=== PATIENT | male | born 1950 | race Caucasian/White ===

== ENCOUNTER 2018-11-29 11:32 | Inpatient (IN) ==
[2018-11-29] MEDS: ceFAZolin 2,000 MG in Water for inj. (sterile) 20 ML IVPB SCH (17:25)
[2018-11-29] MEDS: Insulin LISPRO 300 UNITS/3 ML VIAL SQ SCH (17:26)
[2018-11-29] MEDS: *HR* Metformin 500 MG TABLET PO SCH (17:26)
[2018-11-29] MEDS ORDERED: Insulin DETEMIR 100 UNIT/ML X5UNITS SQ SCH (21:00)
[2018-11-30] MEDS: ceFAZolin 2,000 MG in Water for inj. (sterile) 20 ML IVPB SCH ×3 (01:14→19:36)
[2018-11-30 07:11] LABS: Basophils # 0.1 K/mcL (0.0-0.2); Basophils % 0.8 %; Eosinophils # 0.4 K/mcL (0.0-0.6); Eosinophils % 4.3 %; Hematocrit 28.1 % (37.5-50.1); Hemoglobin 9.4 g/dL (12.9-16.9); Immature Granulocytes % 0.4 % (0-4); Lymphocytes # 1.7 K/mcL (0.6-4.6); Lymphocytes % 20.4 %; Mean Corpuscular HGB Conc 33.5 g/dL (31.6-35.5); Mean Corpuscular Hemoglobin 30.4 pg (28.0-33.3); Mean Corpuscular Volume 90.9 fL (83.0-100.0); Mean Platelet Volume 8.9 fL (9.4-12.4); Monocytes # 0.7 K/mcL (0.0-1.3); Monocytes % 8.4 %; Neutrophils # 5.4 K/mcL (1.6-8.9); Platelet Count 303 K/mcL (140-400); Red Blood Count 3.09 M/mcL (4.19-5.50); Red Cell Distribution Width 14.2 % (11.5-14.5); Segmented Neutrophils % 65.7 %; White Blood Count 8.3 K/mcL (4.3-11.1)
[2018-11-30 07:27] LABS: Calcium 8.2 mg/dL (8.6-10.3); Potassium 3.9 mEq/L (3.5-5.1)
[2018-11-30] MEDS: *HR* Metformin 500 MG TABLET PO SCH ×2 (08:18→19:36)
[2018-11-30] MEDS: Aspirin Enteric Coated 81 MG Tablet PO SCH (08:19)
[2018-11-30] MEDS: Insulin DETEMIR 100 UNIT/ML X5UNITS SQ SCH ×2 (08:19→21:55)
[2018-11-30] MEDS: Insulin LISPRO 300 UNITS/3 ML VIAL SQ SCH ×5 (08:19→21:55)
[2018-11-30] MEDS ORDERED: Dextrose Gel 15 GM/37.5 ML TUBE PO PRN ×2 (19:47)
[2018-11-30] MEDS ORDERED: D5% in Water 1,000 ML IVC PRN (19:47)
[2018-11-30] MEDS ORDERED: *HR* Dextrose 50 % in Water (Syg) 50 ML SYRINGE IVP PRN (19:47)
[2018-11-30] MEDS: Lactobacillus 1 EACH CAP.SPRINK PO SCH (21:55)
[2018-12-01] MEDS: ceFAZolin 2,000 MG in Water for inj. (sterile) 20 ML IVPB SCH ×4 (04:41→20:10)
[2018-12-01 09:23] LABS: Estimated Average Glucose 192 mg/dl
[2018-12-01] MEDS: Aspirin Enteric Coated 81 MG Tablet PO SCH (10:00)
[2018-12-01] MEDS: Lactobacillus 1 EACH CAP.SPRINK PO SCH ×2 (10:00→20:10)
[2018-12-01 10:01] LABS: Folate 7.3 ng/mL (3.0-16.0)
[2018-12-01] MEDS: Insulin DETEMIR 100 UNIT/ML X5UNITS SQ SCH ×2 (10:01→20:10)
[2018-12-01] MEDS: *HR* Metformin 500 MG TABLET PO SCH ×2 (10:01→17:57)
[2018-12-01] MEDS: Insulin LISPRO 300 UNITS/3 ML VIAL SQ SCH ×4 (10:01→20:04)
[2018-12-01] MEDS ORDERED: *HR* Dextrose 50 % in Water (Vial) 50 ML VIAL IVP PRN (17:00)
[2018-12-01] MEDS ORDERED: Cyanocobalamin (B-12) 1,000 MCG/ML VIAL IM ONE (17:20)
[2018-12-02] MEDS: ceFAZolin 2,000 MG in Water for inj. (sterile) 20 ML IVPB SCH ×3 (04:11→21:18)
[2018-12-02] MEDS: Cholecalciferol (D-3) 1,000 UNIT (25MCG) TABLET PO SCH (09:29)
[2018-12-02] MEDS: Insulin LISPRO 300 UNITS/3 ML VIAL SQ SCH ×4 (09:30→21:19)
[2018-12-02] MEDS: Aspirin Enteric Coated 81 MG Tablet PO SCH (09:30)
[2018-12-02] MEDS: Lactobacillus 1 EACH CAP.SPRINK PO SCH ×2 (09:30→21:18)
[2018-12-02] MEDS: Cyanocobalamin (B-12) 1,000 MCG TABLET PO SCH (09:30)
[2018-12-02] MEDS: *HR* Metformin 500 MG TABLET PO SCH ×2 (09:30→17:12)
[2018-12-02] MEDS: Insulin DETEMIR 100 UNIT/ML X5UNITS SQ SCH ×2 (09:34→21:18)
[2018-12-03] MEDS: ceFAZolin 2,000 MG in Water for inj. (sterile) 20 ML IVPB SCH ×3 (05:05→20:29)
[2018-12-03] MEDS: Insulin LISPRO 300 UNITS/3 ML VIAL SQ SCH ×4 (07:33→20:29)
[2018-12-03] MEDS: *HR* Metformin 500 MG TABLET PO SCH ×2 (08:59→16:47)
[2018-12-03] MEDS: Cyanocobalamin (B-12) 1,000 MCG TABLET PO SCH (09:00)
[2018-12-03] MEDS: Insulin DETEMIR 100 UNIT/ML X5UNITS SQ SCH ×2 (09:00→20:30)
[2018-12-03] MEDS: Aspirin Enteric Coated 81 MG Tablet PO SCH (09:00)
[2018-12-03] MEDS: Cholecalciferol (D-3) 1,000 UNIT (25MCG) TABLET PO SCH (09:00)
[2018-12-03] MEDS: Lactobacillus 1 EACH CAP.SPRINK PO SCH ×2 (09:00→20:29)
[2018-12-04] MEDS: ceFAZolin 2,000 MG in Water for inj. (sterile) 20 ML IVPB SCH ×3 (03:18→21:49)
[2018-12-04 05:24] LABS: Basophils # 0.1 K/mcL (0.0-0.2); Basophils % 0.8 %; Eosinophils # 0.7 K/mcL (0.0-0.6); Eosinophils % 7.2 %; Hematocrit 27.9 % (37.5-50.1); Hemoglobin 9.2 g/dL (12.9-16.9); Immature Granulocytes % 0.6 % (0-4); Lymphocytes % 20.9 %; Mean Corpuscular Hemoglobin 30.5 pg (28.0-33.3); Mean Corpuscular Volume 92.4 fL (83.0-100.0); Mean Platelet Volume 9.5 fL (9.4-12.4); Monocytes # 0.8 K/mcL (0.0-1.3); Monocytes % 8.1 %; Neutrophils # 5.9 K/mcL (1.6-8.9); Platelet Count 278 K/mcL (140-400); Red Blood Count 3.02 M/mcL (4.19-5.50); Red Cell Distribution Width 14.6 % (11.5-14.5); Segmented Neutrophils % 62.4 %; White Blood Count 9.5 K/mcL (4.3-11.1)
[2018-12-04 06:08] LABS: Albumin 3.1 g/dL (3.5-5.7); Bilirubin,Total 0.2 mg/dL (0.3-1.0); Calcium 8.4 mg/dL (8.6-10.3); Globulin 3.2 g/dL (2.4-3.5); Potassium 4.4 mEq/L (3.5-5.1); Total Protein 6.3 g/dL (6.4-8.9)
[2018-12-04] MEDS: Insulin LISPRO 300 UNITS/3 ML VIAL SQ SCH ×4 (09:44→21:50)
[2018-12-04] MEDS: Lactobacillus 1 EACH CAP.SPRINK PO SCH ×2 (09:45→21:49)
[2018-12-04] MEDS: Insulin DETEMIR 100 UNIT/ML X5UNITS SQ SCH ×2 (09:45→21:50)
[2018-12-04] MEDS: Cholecalciferol (D-3) 1,000 UNIT (25MCG) TABLET PO SCH (09:45)
[2018-12-04] MEDS: Cyanocobalamin (B-12) 1,000 MCG TABLET PO SCH (09:45)
[2018-12-04] MEDS: *HR* Metformin 500 MG TABLET PO SCH ×2 (09:46→18:29)
[2018-12-04] MEDS: Aspirin Enteric Coated 81 MG Tablet PO SCH (09:46)
[2018-12-05] MEDS: ceFAZolin 2,000 MG in Water for inj. (sterile) 20 ML IVPB SCH ×3 (05:07→22:45)
[2018-12-05] MEDS: *HR* Enoxaparin 40 MG/0.4 ML SYRINGE SQ SCH (05:09)
[2018-12-05] MEDS: Insulin LISPRO 300 UNITS/3 ML VIAL SQ SCH ×4 (08:35→20:02)
[2018-12-05] MEDS: Lactobacillus 1 EACH CAP.SPRINK PO SCH ×2 (09:22→20:02)
[2018-12-05] MEDS: Cholecalciferol (D-3) 1,000 UNIT (25MCG) TABLET PO SCH (09:22)
[2018-12-05] MEDS: *HR* Metformin 500 MG TABLET PO SCH ×2 (09:22→16:03)
[2018-12-05] MEDS: Cyanocobalamin (B-12) 1,000 MCG TABLET PO SCH (09:22)
[2018-12-05] MEDS: Aspirin Enteric Coated 81 MG Tablet PO SCH (09:23)
[2018-12-05] MEDS: Insulin DETEMIR 100 UNIT/ML X5UNITS SQ SCH ×2 (09:25→20:02)
[2018-12-05] MEDS ORDERED: *HR* Alteplase (Cathflo) 2 MG VIAL IVP ONE (14:34)
[2018-12-05 17:29] LABS: Basophils # 0.1 K/mcL (0.0-0.2); Basophils % 0.6 %; Eosinophils # 0.7 K/mcL (0.0-0.6); Eosinophils % 5.8 %; Hematocrit 31.7 % (37.5-50.1); Hemoglobin 10.4 g/dL (12.9-16.9); Immature Granulocytes % 0.9 % (0-4); Lymphocytes # 1.9 K/mcL (0.6-4.6); Lymphocytes % 17.2 %; Mean Corpuscular HGB Conc 32.8 g/dL (31.6-35.5); Mean Corpuscular Hemoglobin 30.4 pg (28.0-33.3); Mean Corpuscular Volume 92.7 fL (83.0-100.0); Mean Platelet Volume 9.6 fL (9.4-12.4); Monocytes # 0.9 K/mcL (0.0-1.3); Monocytes % 7.5 %; Neutrophils # 7.7 K/mcL (1.6-8.9); Platelet Count 342 K/mcL (140-400); Red Blood Count 3.42 M/mcL (4.19-5.50); Red Cell Distribution Width 14.6 % (11.5-14.5); White Blood Count 11.3 K/mcL (4.3-11.1)
[2018-12-05 17:49] LABS: Calcium 8.4 mg/dL (8.6-10.3); Potassium 4.6 mEq/L (3.5-5.1)
[2018-12-06] MEDS: *HR* Enoxaparin 40 MG/0.4 ML SYRINGE SQ SCH (06:20)
[2018-12-06] MEDS: ceFAZolin 2,000 MG in Water for inj. (sterile) 20 ML IVPB SCH ×3 (06:20→23:49)
[2018-12-06] MEDS: Insulin LISPRO 300 UNITS/3 ML VIAL SQ SCH ×4 (07:34→22:01)
[2018-12-06] MEDS: *HR* Metformin 500 MG TABLET PO SCH ×2 (07:45→16:49)
[2018-12-06] MEDS: Aspirin Enteric Coated 81 MG Tablet PO SCH (07:45)
[2018-12-06] MEDS: Lactobacillus 1 EACH CAP.SPRINK PO SCH ×2 (07:45→22:01)
[2018-12-06] MEDS: Cyanocobalamin (B-12) 1,000 MCG TABLET PO SCH (07:45)
[2018-12-06] MEDS: Cholecalciferol (D-3) 1,000 UNIT (25MCG) TABLET PO SCH (07:45)
[2018-12-06] MEDS: Insulin DETEMIR 100 UNIT/ML X5UNITS SQ SCH ×2 (08:06→22:01)
[2018-12-07] MEDS: ceFAZolin 2,000 MG in Water for inj. (sterile) 20 ML IVPB SCH ×3 (06:31→23:21)
[2018-12-07] MEDS: *HR* Enoxaparin 40 MG/0.4 ML SYRINGE SQ SCH (06:32)
[2018-12-07] MEDS: *HR* Metformin 500 MG TABLET PO SCH ×2 (10:31→16:51)
[2018-12-07] MEDS: Lactobacillus 1 EACH CAP.SPRINK PO SCH ×2 (10:31→21:33)
[2018-12-07] MEDS: Cyanocobalamin (B-12) 1,000 MCG TABLET PO SCH (10:32)
[2018-12-07] MEDS: Aspirin Enteric Coated 81 MG Tablet PO SCH (10:32)
[2018-12-07] MEDS: Cholecalciferol (D-3) 1,000 UNIT (25MCG) TABLET PO SCH (10:32)
[2018-12-07] MEDS: Insulin DETEMIR 100 UNIT/ML X5UNITS SQ SCH ×2 (10:43→21:33)
[2018-12-07] MEDS: Insulin LISPRO 300 UNITS/3 ML VIAL SQ SCH ×4 (10:43→21:33)
[2018-12-08] MEDS: ceFAZolin 2,000 MG in Water for inj. (sterile) 20 ML IVPB SCH ×3 (06:51→23:34)
[2018-12-08] MEDS: *HR* Enoxaparin 40 MG/0.4 ML SYRINGE SQ SCH (06:52)
[2018-12-08] MEDS: Cyanocobalamin (B-12) 1,000 MCG TABLET PO SCH (08:08)
[2018-12-08] MEDS: Lactobacillus 1 EACH CAP.SPRINK PO SCH ×2 (08:08→20:53)
[2018-12-08] MEDS: Aspirin Enteric Coated 81 MG Tablet PO SCH (08:08)
[2018-12-08] MEDS: Insulin DETEMIR 100 UNIT/ML X5UNITS SQ SCH ×2 (08:08→20:53)
[2018-12-08] MEDS: *HR* Metformin 500 MG TABLET PO SCH ×2 (08:08→18:37)
[2018-12-08] MEDS: Cholecalciferol (D-3) 1,000 UNIT (25MCG) TABLET PO SCH (08:08)
[2018-12-08] MEDS: Insulin LISPRO 300 UNITS/3 ML VIAL SQ SCH ×4 (08:09→20:53)
[2018-12-09] MEDS: ceFAZolin 2,000 MG in Water for inj. (sterile) 20 ML IVPB SCH ×3 (06:36→23:42)
[2018-12-09] MEDS: *HR* Enoxaparin 40 MG/0.4 ML SYRINGE SQ SCH (06:38)
[2018-12-09] MEDS: Insulin LISPRO 300 UNITS/3 ML VIAL SQ SCH ×4 (08:15→21:13)
[2018-12-09] MEDS: Aspirin Enteric Coated 81 MG Tablet PO SCH (08:19)
[2018-12-09] MEDS: *HR* Metformin 500 MG TABLET PO SCH ×2 (08:19→16:08)
[2018-12-09] MEDS: Cyanocobalamin (B-12) 1,000 MCG TABLET PO SCH (08:19)
[2018-12-09] MEDS: Insulin DETEMIR 100 UNIT/ML X5UNITS SQ SCH ×2 (08:19→21:14)
[2018-12-09] MEDS: Lactobacillus 1 EACH CAP.SPRINK PO SCH ×2 (08:19→21:13)
[2018-12-09] MEDS: Cholecalciferol (D-3) 1,000 UNIT (25MCG) TABLET PO SCH (08:19)
[2018-12-10] MEDS: *HR* Enoxaparin 40 MG/0.4 ML SYRINGE SQ SCH (06:25)
[2018-12-10] MEDS: Insulin DETEMIR 100 UNIT/ML X5UNITS SQ SCH ×2 (08:26→21:34)
[2018-12-10] MEDS: Insulin LISPRO 300 UNITS/3 ML VIAL SQ SCH ×4 (08:26→21:35)
[2018-12-10] MEDS: ceFAZolin 2,000 MG in Water for inj. (sterile) 20 ML IVPB SCH ×3 (08:26→22:44)
[2018-12-10] MEDS: Aspirin Enteric Coated 81 MG Tablet PO SCH (08:27)
[2018-12-10] MEDS: *HR* Metformin 500 MG TABLET PO SCH ×2 (08:27→16:41)
[2018-12-10] MEDS: Cholecalciferol (D-3) 1,000 UNIT (25MCG) TABLET PO SCH (08:27)
[2018-12-10] MEDS: Cyanocobalamin (B-12) 1,000 MCG TABLET PO SCH (08:27)
[2018-12-10] MEDS: Lactobacillus 1 EACH CAP.SPRINK PO SCH ×2 (08:28→21:36)
[2018-12-11] MEDS: *HR* Enoxaparin 40 MG/0.4 ML SYRINGE SQ SCH (06:36)
[2018-12-11] MEDS: ceFAZolin 2,000 MG in Water for inj. (sterile) 20 ML IVPB SCH ×3 (06:37→22:43)
[2018-12-11 07:24] LABS: Basophils # 0.1 K/mcL (0.0-0.2); Basophils % 0.7 %; Eosinophils # 0.6 K/mcL (0.0-0.6); Eosinophils % 6.9 %; Hematocrit 27.9 % (37.5-50.1); Hemoglobin 9.4 g/dL (12.9-16.9); Immature Granulocytes % 0.5 % (0-4); Lymphocytes % 22.9 %; Mean Corpuscular HGB Conc 33.7 g/dL (31.6-35.5); Mean Corpuscular Volume 92.1 fL (83.0-100.0); Mean Platelet Volume 9.4 fL (9.4-12.4); Monocytes # 0.7 K/mcL (0.0-1.3); Monocytes % 8.5 %; Neutrophils # 5.2 K/mcL (1.6-8.9); Platelet Count 329 K/mcL (140-400); Red Blood Count 3.03 M/mcL (4.19-5.50); Red Cell Distribution Width 14.4 % (11.5-14.5); Segmented Neutrophils % 60.5 %; White Blood Count 8.6 K/mcL (4.3-11.1)
[2018-12-11 07:42] LABS: BUN/Creatinine Ratio 19 (6-26); Blood Urea Nitrogen 24 mg/dL (8-23); Calcium 8.9 mg/dL (8.6-10.3); Carbon Dioxide 27 mEq/L (23-29); Chloride 100 mEq/L (98-107); Glucose 69 mg/dL (70-105); Osmolality,Calculated 282 (280-300); Potassium 4.4 mEq/L (3.5-5.1); Sodium 135 mEq/L (136-145); eGFR For African Americans > 60 (> 60); eGFR For Non-African Americans 56 (> 60)
[2018-12-11] MEDS: Insulin LISPRO 300 UNITS/3 ML VIAL SQ SCH ×4 (09:25→20:37)
[2018-12-11] MEDS: Cholecalciferol (D-3) 1,000 UNIT (25MCG) TABLET PO SCH (09:30)
[2018-12-11] MEDS: Cyanocobalamin (B-12) 1,000 MCG TABLET PO SCH (09:30)
[2018-12-11] MEDS: Aspirin Enteric Coated 81 MG Tablet PO SCH (09:30)
[2018-12-11] MEDS: *HR* Metformin 500 MG TABLET PO SCH ×2 (09:30→16:23)
[2018-12-11] MEDS: Lactobacillus 1 EACH CAP.SPRINK PO SCH ×2 (09:30→20:34)
[2018-12-11] MEDS: Insulin DETEMIR 100 UNIT/ML X5UNITS SQ SCH ×2 (09:31→20:34)
[2018-12-12] MEDS: *HR* Enoxaparin 40 MG/0.4 ML SYRINGE SQ SCH (05:23)
[2018-12-12] MEDS: ceFAZolin 2,000 MG in Water for inj. (sterile) 20 ML IVPB SCH ×3 (06:15→23:04)
[2018-12-12 06:38] LABS: Basophils # 0.1 K/mcL (0.0-0.2); Basophils % 0.9 %; Eosinophils # 0.7 K/mcL (0.0-0.6); Eosinophils % 8.6 %; Hematocrit 27.5 % (37.5-50.1); Hemoglobin 9.1 g/dL (12.9-16.9); Immature Granulocytes % 0.5 % (0-4); Lymphocytes # 1.8 K/mcL (0.6-4.6); Lymphocytes % 23.6 %; Mean Corpuscular HGB Conc 33.1 g/dL (31.6-35.5); Mean Corpuscular Hemoglobin 30.6 pg (28.0-33.3); Mean Corpuscular Volume 92.6 fL (83.0-100.0); Mean Platelet Volume 9.6 fL (9.4-12.4); Monocytes # 0.8 K/mcL (0.0-1.3); Monocytes % 9.7 %; Neutrophils # 4.4 K/mcL (1.6-8.9); Platelet Count 341 K/mcL (140-400); Red Blood Count 2.97 M/mcL (4.19-5.50); Red Cell Distribution Width 14.5 % (11.5-14.5); Segmented Neutrophils % 56.7 %; White Blood Count 7.8 K/mcL (4.3-11.1)
[2018-12-12 07:38] LABS: BUN/Creatinine Ratio 21 (6-26); Blood Urea Nitrogen 29 mg/dL (8-23); Calcium 9.1 mg/dL (8.6-10.3); Carbon Dioxide 26 mEq/L (23-29); Chloride 98 mEq/L (98-107); Glucose 69 mg/dL (70-105); Osmolality,Calculated 280 (280-300); Potassium 4.5 mEq/L (3.5-5.1); Sodium 133 mEq/L (136-145); eGFR For African Americans > 60 (> 60); eGFR For Non-African Americans 52 (> 60)
[2018-12-12] MEDS: Insulin LISPRO 300 UNITS/3 ML VIAL SQ SCH ×4 (07:49→20:51)
[2018-12-12] MEDS: Cholecalciferol (D-3) 1,000 UNIT (25MCG) TABLET PO SCH (08:44)
[2018-12-12] MEDS: *HR* Metformin 500 MG TABLET PO SCH ×2 (08:44→16:10)
[2018-12-12] MEDS: Aspirin Enteric Coated 81 MG Tablet PO SCH (08:44)
[2018-12-12] MEDS: Lactobacillus 1 EACH CAP.SPRINK PO SCH ×2 (08:45→21:37)
[2018-12-12] MEDS: Cyanocobalamin (B-12) 1,000 MCG TABLET PO SCH (08:45)
[2018-12-12] MEDS: Insulin DETEMIR 100 UNIT/ML X5UNITS SQ SCH ×2 (08:58→21:37)
[2018-12-12 10:05] LABS: C-Reactive Protein 21 mg/L (Less than 10)
[2018-12-13] MEDS: *HR* Enoxaparin 40 MG/0.4 ML SYRINGE SQ SCH (06:17)
[2018-12-13] MEDS: ceFAZolin 2,000 MG in Water for inj. (sterile) 20 ML IVPB SCH ×3 (06:24→23:53)
[2018-12-13] MEDS: Insulin LISPRO 300 UNITS/3 ML VIAL SQ SCH ×4 (07:28→21:09)
[2018-12-13] MEDS: Cyanocobalamin (B-12) 1,000 MCG TABLET PO SCH (07:41)
[2018-12-13] MEDS: *HR* Metformin 500 MG TABLET PO SCH ×2 (07:41→16:20)
[2018-12-13] MEDS: Lactobacillus 1 EACH CAP.SPRINK PO SCH ×2 (07:41→21:08)
[2018-12-13] MEDS: Cholecalciferol (D-3) 1,000 UNIT (25MCG) TABLET PO SCH (07:42)
[2018-12-13] MEDS: Aspirin Enteric Coated 81 MG Tablet PO SCH (07:42)
[2018-12-13] MEDS: Insulin DETEMIR 100 UNIT/ML X5UNITS SQ SCH ×2 (08:34→21:08)
[2018-12-14] MEDS: ceFAZolin 2,000 MG in Water for inj. (sterile) 20 ML IVPB SCH ×3 (06:04→22:32)
[2018-12-14] MEDS: *HR* Enoxaparin 40 MG/0.4 ML SYRINGE SQ SCH (06:05)
[2018-12-14] MEDS: Insulin LISPRO 300 UNITS/3 ML VIAL SQ SCH ×4 (07:41→20:48)
[2018-12-14] MEDS: *HR* Metformin 500 MG TABLET PO SCH ×2 (07:51→16:17)
[2018-12-14] MEDS: Aspirin Enteric Coated 81 MG Tablet PO SCH (07:51)
[2018-12-14] MEDS: Cyanocobalamin (B-12) 1,000 MCG TABLET PO SCH (07:51)
[2018-12-14] MEDS: Lactobacillus 1 EACH CAP.SPRINK PO SCH ×2 (07:51→20:47)
[2018-12-14] MEDS: Cholecalciferol (D-3) 1,000 UNIT (25MCG) TABLET PO SCH (07:52)
[2018-12-14] MEDS: Insulin DETEMIR 100 UNIT/ML X5UNITS SQ SCH ×2 (09:35→20:47)
[2018-12-15] MEDS: *HR* Enoxaparin 40 MG/0.4 ML SYRINGE SQ SCH (06:07)
[2018-12-15] MEDS: ceFAZolin 2,000 MG in Water for inj. (sterile) 20 ML IVPB SCH ×3 (06:07→23:11)
[2018-12-15] MEDS: Insulin LISPRO 300 UNITS/3 ML VIAL SQ SCH ×4 (08:36→21:06)
[2018-12-15] MEDS: Cyanocobalamin (B-12) 1,000 MCG TABLET PO SCH (08:53)
[2018-12-15] MEDS: *HR* Metformin 500 MG TABLET PO SCH ×2 (08:53→16:56)
[2018-12-15] MEDS: Aspirin Enteric Coated 81 MG Tablet PO SCH (08:53)
[2018-12-15] MEDS: Insulin DETEMIR 100 UNIT/ML X5UNITS SQ SCH ×2 (08:54→21:06)
[2018-12-15] MEDS: Cholecalciferol (D-3) 1,000 UNIT (25MCG) TABLET PO SCH (08:54)
[2018-12-15] MEDS: Lactobacillus 1 EACH CAP.SPRINK PO SCH ×2 (08:54→21:06)
[2018-12-16] MEDS: ceFAZolin 2,000 MG in Water for inj. (sterile) 20 ML IVPB SCH ×2 (06:28→16:22)
[2018-12-16] MEDS: *HR* Enoxaparin 40 MG/0.4 ML SYRINGE SQ SCH (06:30)
[2018-12-16] MEDS: Insulin LISPRO 300 UNITS/3 ML VIAL SQ SCH ×4 (08:00→20:35)
[2018-12-16] MEDS: Lactobacillus 1 EACH CAP.SPRINK PO SCH ×2 (09:03→20:34)
[2018-12-16] MEDS: Cyanocobalamin (B-12) 1,000 MCG TABLET PO SCH (09:03)
[2018-12-16] MEDS: *HR* Metformin 500 MG TABLET PO SCH ×2 (09:03→16:23)
[2018-12-16] MEDS: Cholecalciferol (D-3) 1,000 UNIT (25MCG) TABLET PO SCH (09:04)
[2018-12-16] MEDS: Insulin DETEMIR 100 UNIT/ML X5UNITS SQ SCH ×2 (09:04→20:34)
[2018-12-16] MEDS: Aspirin Enteric Coated 81 MG Tablet PO SCH (09:04)
[2018-12-17] MEDS: *HR* Enoxaparin 40 MG/0.4 ML SYRINGE SQ SCH (06:30)
[2018-12-17] MEDS: ceFAZolin 2,000 MG in Water for inj. (sterile) 20 ML IVPB SCH ×4 (06:30→23:59)
[2018-12-17] MEDS: Insulin LISPRO 300 UNITS/3 ML VIAL SQ SCH ×4 (09:03→21:32)
[2018-12-17] MEDS: Aspirin Enteric Coated 81 MG Tablet PO SCH (09:14)
[2018-12-17] MEDS: *HR* Metformin 500 MG TABLET PO SCH ×2 (09:14→17:23)
[2018-12-17] MEDS: Insulin DETEMIR 100 UNIT/ML X5UNITS SQ SCH ×2 (09:14→21:32)
[2018-12-17] MEDS: Cyanocobalamin (B-12) 1,000 MCG TABLET PO SCH (09:14)
[2018-12-17] MEDS: Cholecalciferol (D-3) 1,000 UNIT (25MCG) TABLET PO SCH (09:17)
[2018-12-17] MEDS: Lactobacillus 1 EACH CAP.SPRINK PO SCH ×2 (09:17→21:32)
[2018-12-18 06:09] VITALS: BP 124/66
[2018-12-18] MEDS: *HR* Enoxaparin 40 MG/0.4 ML SYRINGE SQ SCH (06:19)
[2018-12-18] MEDS: Aspirin Enteric Coated 81 MG Tablet PO SCH (09:23)
[2018-12-18] MEDS: Cyanocobalamin (B-12) 1,000 MCG TABLET PO SCH (09:23)
[2018-12-18] MEDS: Lactobacillus 1 EACH CAP.SPRINK PO SCH (09:23)
[2018-12-18] MEDS: Cholecalciferol (D-3) 1,000 UNIT (25MCG) TABLET PO SCH (09:23)
[2018-12-18] MEDS: *HR* Metformin 500 MG TABLET PO SCH ×2 (09:24→16:12)
[2018-12-18] MEDS: ceFAZolin 2,000 MG in Water for inj. (sterile) 20 ML IVPB SCH (09:24)
[2018-12-18] MEDS: Insulin LISPRO 300 UNITS/3 ML VIAL SQ SCH ×3 (09:26→16:13)
[2018-12-18] MEDS: Insulin DETEMIR 100 UNIT/ML X5UNITS SQ SCH (09:27)
[2018-12-18 13:14] LABS: Basophils # 0.1 K/mcL (0.0-0.2); Basophils % 0.5 %; Eosinophils # 0.9 K/mcL (0.0-0.6); Eosinophils % 9.4 %; Hematocrit 27.9 % (37.5-50.1); Hemoglobin 9.4 g/dL (12.9-16.9); Immature Granulocytes % 0.5 % (0-4); Lymphocytes # 1.8 K/mcL (0.6-4.6); Lymphocytes % 19.4 %; Mean Corpuscular HGB Conc 33.7 g/dL (31.6-35.5); Mean Corpuscular Hemoglobin 31.1 pg (28.0-33.3); Mean Corpuscular Volume 92.4 fL (83.0-100.0); Mean Platelet Volume 9.1 fL (9.4-12.4); Monocytes # 0.8 K/mcL (0.0-1.3); Monocytes % 8.2 %; Neutrophils # 5.7 K/mcL (1.6-8.9); Platelet Count 319 K/mcL (140-400); Red Blood Count 3.02 M/mcL (4.19-5.50); Red Cell Distribution Width 14.6 % (11.5-14.5); White Blood Count 9.3 K/mcL (4.3-11.1)
[2018-12-18 13:27] LABS: BUN/Creatinine Ratio 23 (6-26); Blood Urea Nitrogen 27 mg/dL (8-23); Calcium 9.2 mg/dL (8.6-10.3); Carbon Dioxide 27 mEq/L (23-29); Chloride 96 mEq/L (98-107); Glucose 75 mg/dL (70-105); Osmolality,Calculated 284 (280-300); Sodium 135 mEq/L (136-145); eGFR For African Americans > 60 (> 60); eGFR For Non-African Americans > 60 (> 60)
[2018-12-18] MEDS ORDERED: ceFAZolin 2,000 MG in Water for inj. (sterile) 20 ML IVPB SCH (17:00)
[2018-12-18] MEDS ORDERED: FLU Vac QV 19-20 (6Month+)/PF 0.5 ML SYRINGE IM ONE (17:32)
[2018-12-18] MEDS ORDERED: Doxycycline 100 MG CAPSULE PO SCH (21:00)
== END 2018-12-18 18:00 | disposition home health service (06) | DRG 603 ==
LOC: INPPIK 12:38
PROVIDERS: ADMIT Internal Medicine; ATTEND Internal Medicine